=== PATIENT | female | born 1965 | race African-American/Black ===

== ENCOUNTER 2021-07-02 07:39 | Emergency (ER) | payer SELFPAY ==
[2021-07-02] MEDS ORDERED: Ondansetron ODT 4 MG TAB ONE (08:49)
[2021-07-02] MEDS ORDERED: Acetaminophen 500 MG TAB ONE (08:50)
[2021-07-02 17:09] LABS: SARS-CoV-2 PCR by NAA DETECTED (NotDetected)
== END 2021-07-02 09:26 | disposition home or self-care (01) ==
LOC: CSHERS 07:39
DX: U07.1 COVID-19 (principal)
CPT/HCPCS: 87804; 99284; Q0162; U0003; U0005

== ENCOUNTER 2022-06-07 00:23 | Emergency (ER) | payer SELFPAY ==
[2022-06-07 01:06] LABS: #Eosinphils 0.1 10x3/uL (0.0-0.5); #Monocytes 0.4 10x3/uL (0.0-1.1); #Neutrophils 3.8 10x3/uL (1.5-8.4); %Basophils 0.5 % (0.0-2.0); %Eosinophils 1.7 % (0.0-6.0); %Lymphocytes 48.3 % (18.0-47.0); %Monocytes 4.7 % (0.0-10.0); %Neutrophils 44.7 % (40.0-75.0); Hemoglobin 11.9 g/dL (12.0-15.5); Mean Corpuscular HGB CONC 33.8 g/dL (32.0-36.0); Mean Corpuscular Hemoglobin 30.4 pg (27.0-33.0); Mean Platelet Volume 8.5 fl (7.4-10.4); Platelet Count 267 10x3/uL (150-450); RBC Distribution Width 12.6 % (11.5-14.5); Red Blood Cell (RBC) Count 3.91 10x6/uL (3.90-5.03); White Blood Cell (WBC) Count 8.4 10x3/uL (3.5-10.5)
[2022-06-07 01:34] LABS: ALT (SGPT) 9 U/L (8-55); AST (SGOT) 17 U/L (5-34); Alkaline Phosphatase 61 U/L (40-110); Anion Gap 16 mmol/L (10-20); BUN (Urea Nitrogen) 12 mg/dL (9.8-20.1); Bilirubin, Total 0.2 mg/dL (0.2-1.2); Calc. Creatinine Clearance 0 mL/min (70-130); Carbon Dioxide 20 mmol/L (22-29); Chloride 109 mmol/L (98-107); Estimated GFR 92; Globulin 2.6 g/dL (2.4-3.5); Glucose 114 mg/dL (70-105); Potassium 3.6 mmol/L (3.5-5.1); Protein, Total 6.6 g/dL (6.0-8.3); Sodium 141 mmol/L (136-145)
[2022-06-07] MEDS ORDERED: Iopamidol 370 76% 100 ML VIAL ONE (09:47)
== END 2022-06-07 02:25 | disposition home or self-care (01) ==
LOC: CSHERS 00:23
DX: R20.2 Paresthesia of skin (principal); F17.210 Nicotine dependence, cigarettes, uncomplicated
CPT/HCPCS: 70450; 70496; 70498; 80053; 84484; 85025; 93005